=== PATIENT | female | born 1980 | race Caucasian/White ===

== ENCOUNTER 2017-06-11 07:53 | Inpatient (IN) | payer BC ==
[2017-06-11] MEDS ORDERED: Vancomycin(*) 1,000 MG in NS 0.9% 250 ML* 250 ML IVPB SCH (09:00)
[2017-06-11] MEDS ORDERED: Lidocaine 1% MPF* 2 ML VIAL ONE (09:40)
[2017-06-11 10:19] LABS: Hematocrit 38 % (35-47); Hemoglobin 13.3 g/dl (12.0-16.0); Mean Corpuscular HGB Conc 35 g/dl (31-36); Mean Corpuscular Hemoglobin 31 pg (27-31); Mean Corpuscular Volume 89 fL (80-97); Mean Platelet Volume 9 um3 (7.4-10.4); Red Blood Count 4.26 10^6/ul (4.0-5.4); Red Cell Distribution Width 14 % (10.5-15); White Blood Count 14.2 10^3/ul (3.5-10.8)
[2017-06-11] MEDS ORDERED: Acetaminophen TAB* 325 MG PO PRN (10:36)
[2017-06-11] MEDS ORDERED: Oxytocin in LR* 20 UNITS/1,000 ML BAG IVPB ONE (17:29)
[2017-06-11] MEDS ORDERED: Witch Hazel PAD* JAR TOPICAL PRN (17:55)
[2017-06-11] MEDS ORDERED: Glycerin ADULT SUPP PR PRN (17:55)
[2017-06-11] MEDS ORDERED: Oxytocin in LR* 20 UNITS/1,000 ML BAG IVPB SCH (18:00)
[2017-06-11] MEDS: Ibuprofen TAB* 600 MG PO PRN (19:36)
[2017-06-11] MEDS ORDERED: Simethicone TAB* 80 MG TAB.CHEW PO SCH (21:00)
[2017-06-12] MEDS: Acetaminophen TAB* 325 MG PO PRN ×3 (00:10→15:40)
[2017-06-12] MEDS: Docusate CAP* 100 MG PO SCH ×3 (04:22→15:40)
[2017-06-12] MEDS: Ibuprofen TAB* 600 MG PO PRN ×3 (04:29→18:13)
[2017-06-12] MEDS ORDERED: Ferrous Gluconate TAB* 324 MG TAB PO SCH (09:00)
[2017-06-12] MEDS: Dibucaine 1% 28.35 GM TUBE PR PRN (09:11)
[2017-06-12 09:28] LABS: Hematocrit 31 % (35-47); Hemoglobin 10.7 g/dl (12.0-16.0); Mean Corpuscular HGB Conc 35 g/dl (31-36); Mean Corpuscular Hemoglobin 31 pg (27-31); Mean Corpuscular Volume 90 fL (80-97); Mean Platelet Volume 8 um3 (7.4-10.4); Red Blood Count 3.41 10^6/ul (4.0-5.4); Red Cell Distribution Width 14 % (10.5-15); White Blood Count 18.7 10^3/ul (3.5-10.8)
--- NOTE | 2017-06-12 22:43 | PTEDU ---
Patient Name: DWIGHT PHOENIX DWIGHT PHOENIX selected video: Follow Me Mum: [facility] Successful to view on at 10:41:35 PM [id number]
[2017-06-13] MEDS: Ibuprofen TAB* 600 MG PO PRN (07:27)
[2017-06-13 08:43] VITALS: BP 126/86
[2017-06-13] MEDS: Docusate CAP* 100 MG PO SCH ×2 (10:52→15:21)
[2017-06-13] MEDS: Dibucaine 1% 28.35 GM TUBE PR PRN (15:52)
== END 2017-06-13 16:07 | disposition home or self-care (01) | DRG 560 ==
LOC: MCHOBOUT 07:53 → MCHOB 08:25
PROVIDERS: ADMIT Midwife; ATTEND Midwife
PROC: 10E0XZZ Delivery of Products of Conception, External Approach (ICD-10-PCS; principal; 2017-06-11)
PROC: 4A1HXCZ Monitoring of Products of Conception, Cardiac Rate, External Approach (ICD-10-PCS; 2017-06-11)
PROC: 0KQM0ZZ Repair Perineum Muscle, Open Approach (ICD-10-PCS; 2017-06-11)
DX: O48.0 Post-term pregnancy (principal); O87.2 Hemorrhoids in the puerperium; Z3A.41 41 weeks gestation of pregnancy; Z37.0 Single live birth; O99.824 Streptococcus B carrier state complicating childbirth; Z88.0 Allergy status to penicillin; Z88.5 Allergy status to narcotic agent; O70.1 Second degree perineal laceration during delivery
CPT/HCPCS: 36415; 85025; 86850; 86900; 86901; A9270-GY; J3370